=== PATIENT | female | born 1985 | race Caucasian/White ===

== ENCOUNTER → 2019-12-05 09:59 | Outpatient (CLI) | payer OTHER, SELFPAY ==
[2019-12-05 16:25] LABS: Progesterone, Total 6.98 ng/mL
== END ==
PROVIDERS: Family Provider Acupuncturist; PCP Family Medicine; Referring Provider Midwife; Visit Provider Midwife
DX: Z34.91 Encounter for supervision of normal pregnancy, unspecified, first trimester (principal)
CPT/HCPCS: 36415; 84144

== ENCOUNTER → 2019-12-06 10:21 | Outpatient (CLI) | payer OTHER, SELFPAY ==
[2019-12-06 11:55] LABS: HCG Quantitative /Beta subunit 616.99 mIU/mL
== END ==
PROVIDERS: Family Provider Acupuncturist; PCP Family Medicine; Referring Provider Midwife; Visit Provider Midwife
DX: Z34.91 Encounter for supervision of normal pregnancy, unspecified, first trimester (principal)
CPT/HCPCS: 36415; 84702

== ENCOUNTER → 2019-12-07 12:47 | Outpatient (CLI) | payer OTHER, SELFPAY ==
[2019-12-07 14:00] LABS: HCG Quantitative /Beta subunit 979.89 mIU/mL
== END ==
PROVIDERS: Family Provider Acupuncturist; PCP Family Medicine; Referring Provider Midwife; Visit Provider Midwife
DX: Z34.91 Encounter for supervision of normal pregnancy, unspecified, first trimester (principal)
CPT/HCPCS: 36415; 84702

== ENCOUNTER → 2020-04-04 14:23 | Outpatient (CLI) | payer OTHER, MEDICAID, SELFPAY ==
--- NOTE | 2020-04-04 14:25 | DI.US.S_ITS ---
PROCEDURE: US OB >= 14 WEEKS FETUS INDICATIONS: 20 WEEK ANATOMICAL SURVEY OUTSIDE/PRIOR DATING DATA: Last menstrual period (LMP): 11/07/19. LMP-based estimated date of delivery (VIRGEN): 08/13/20. First dating scan (date and location): 04/04/20. Estimated date of delivery (VIRGEN) from first dating scan: 08/10/20. TECHNIQUE: Real-time scanning was performed of the fetus, with image documentation and biometric measurements. Endovaginal scanning: No COMPARISON: None. FINDINGS: General: A single living intrauterine gestation is present. Presentation: Vertex. Placenta: Placental position is posterior, without previa. Amniotic fluid index: 1.6 cm, normal range is 5-24 cm. heart rate: 145 beats per minute. Maternal cervical canal: 3.8 cm long. Normal lower limit is 2.5 cm. biometrics: Biparietal diameter: 22 weeks 1 days Head circumference: 22 weeks 1 day Abdominal circumference: 21 weeks 3 days Femur length: 21 weeks 2 days Estimated gestational age from initial scan: 21 weeks 5 days Composite gestational age from present scan: 21 weeks 5 days Estimated weight and percentile: 428 g; 56 percentile Measurement variability for biometric dating: +/- 7 days from 14 weeks to 15 weeks 6 days gestation, +/- 10 days from 16 weeks to 21 weeks 6 days gestation, +/- 2 weeks from 22 weeks to 27 weeks 6 days gestation, +/- 3 weeks for 28 weeks gestation or later. weight reference: 4500 g or EFW >90/95% is considered macrosomia or large for gestational age. EFW <10% is small for gestational age. EFW 5% or less is considered intra-uterine growth restriction. Anatomic survey: Neuro: Ventricles are non-dilated at less than 10 mm. Cisterna magna is normal at 3-11 mm. Cerebellum is normal in size and morphology. Nuchal skin fold: Normal at less than 6 mm between 14-21 weeks gestational age. Face: Nose and lips. Facial profile not well-seen. Spine: No evidence for spina bifida. Heart: 4-chambered heart is present, with normal ventricular outflow tracts. Diaphragm: Diaphragm is intact. Stomach: Left-sided stomach is present. Kidneys: No hydronephrosis. Normal is less than 5 mm in 2nd trimester, less than 7 mm in 3rd trimester. Cord: 3-vessel cord has orthotopic insertion. Bladder: Normal in size. Extremities: All 4 extremities identified; however the ankle and feet suboptimally visualized. IMPRESSION: 1. 21 week 5 day ruggiero IUP corresponding to ultrasound VIRGEN of 08/10/20. 2. Facial profile and feet not well-visualized; otherwise normal anatomy. Followup recommended. Dictated by: Arden Dahl [facility] Interpreted: Isamar Dudley MD on 04/04/2020 at 16:04 Approved by: Isamar Dudley MD, PhD on 04/04/2020 at 16:32
[2020-04-04 16:59] LABS: Free T3, Triiodothyronine Free 2.41 pg/mL (2.77-5.27); Free T4, Direct Thyroxine 0.74 ng/dL (0.78-2.19)
[2020-04-04 17:13] LABS: Thyroid Stimulating Hormone 1.75 uIU/mL (0.47-4.68)
== END ==
PROVIDERS: Family Provider Acupuncturist; PCP Family Medicine; Referring Provider Midwife; Visit Provider Midwife
DX: Z36.89 Encounter for other specified antenatal screening (principal); Z3A.21 21 weeks gestation of pregnancy
CPT/HCPCS: 36415; 76811; 84144; 84439; 84443; 84481

== ENCOUNTER 2020-08-31 11:58 | Emergency (ER) | payer OTHER, MEDICAID, SELFPAY ==
[2020-08-31] VITALS (11 sets, daily range): BP systolic 127–159; BP diastolic 74–92; PULSE 82–95; RESP 15–16; TEMP 36.8; O2SAT 96–99; BMI 36.6
--- NOTE | 2020-08-31 12:42 | ED_ITS ---
HPI - <TiffanyMICHAEL Pereyra - Last Filed: 08/31/20 16:36> General Chief complaint: Hypertension Stated complaint: High Blood Pressure Post Time Seen by Provider: 08/31/20 12:02 History of Present Illness HPI Narrative: 35yo female who is recently 5 days , presents emergency department for high blood pressure. Patient states after her child was delivered she developed high blood pressure, she is unsure of the exact number but states it was most likely what it is right now (150s/80s). Patient states when she was in the hospital she was put on a labetalol drip and sent home with labetalol pills 100 mg b.i.d.. She had been taking them for the 1st few days but then was concerned that her diastolic blood pressure was low, she c onsult sudden nurse who stated that she should stop the medication for few doses. She continued to check her blood pressure and noticed that it was elevated again, she started taking her medication. She has had 3 doses in the last 48 hours. Last dose was this morning. She states she woke up this morning and noticed her blood pressure was high sits ever been, she states the diastolic blood pressure was very elevated, she was told to come to the ER for any evaluation by her insurance sales specialist. She denies any symptoms at any point with discontinuing or continuing medication, no symptoms this morning. She denies any double vision, blurred vision, headaches, dizziness, nausea, vomiting, diarrhea, abnormal bleeding, muscle cramping, or any other concerns. She states is doing well, she is currently breast-feeding. Denies any history of preeclampsia prior to . Related Data Home Medications Medication Instructions Recorded Confirmed Vitamins (PRENAVITE) 1 tab PO QDAY #0 10/14/16 Review of Systems <TiffanyMICHAEL Pereyra - Last Filed: 08/31/20 16:36> Review of Systems Narrative: REVIEW OF SYSTEMS: GENERAL: Denies fever. HENT: No head trauma. No headaches. EYES: No loss of vision, double vision, eye pain, or irritation. CARDIOVASCULAR: No chest pain. Reports high blood pressure, see HPI. RESPIRATORY: No shortness of breath or cough. GASTROINTESTINAL: Denies abdominal pain. GENITOURINARY: No abnormal or worsening vaginal bleeding. MUSCULOSKELETAL: No pain, weakness, or trauma. INTEGUMENTARY: No rash, lesions, or pruritus. NEURO: No headaches. PMFSH - <MICHAEL Park - Last Filed: 08/31/20 16:36> Past Medical History Medical history: Reports non-contributory Surgical history: Reports non-contributory Exam <MICHAEL Park - Last Filed: 08/31/20 16:36> Initial Vital Signs Initial Vital Signs: Vital Signs Temperature 98.2 F 08/31/20 12:30 Pulse Rate 95 H 08/31/20 12:30 Respiratory Rate 15 08/31/20 12:30 Blood Pressure 159/88 H 08/31/20 12:30 Pulse Oximetry 98 08/31/20 12:30 PHYSICAL EXAMINATION: GENERAL: Well groomed, alert, and cooperative. Answers questions promptly and appropriately. Vital signs noted. HENT: Normocephalic. Ear canals patent. Oral mucosa is pink and moist. EYES: PERRLA, EOMIs, conjunctiva pink, sclera white, no periorbital swelling. NECK: Full ROM. CARDIOVASCULAR: S1 and S2 sounds normal. Regular rate and rhythm, no murmurs, clicks, or bruits. RESPIRATORY: Normal respiratory rate, trachea midline, airway patent. No stridor, nasal flaring or accessory muscle use. Lungs are clear in all lu without wheeze, rhonchi, or crackles. MUSCULOSKELETAL: Normal gait and coordination. Equal tone and mass bilaterally. Equal strength bilaterally to upper and lower extremities. No spinal tenderness. No clonus. EXTREMITIES: CMS intact. Moves all extremities. SKIN: Warm, dry, soft, appropriate color for ethnicity. No lesions, rashes, or wounds to visualized areas. NEURO: Alert and Oriented X 3. GCS: 15. Good coordination. No ataxia, or sensory deficits, or cognitive issues. No clonus. Cranial Nerves: II: Visual lu grossly intact. III & IV & : EOMIs V: Able to open and close jaw. VII: Facial movements symetrical. Able to close eyelids tightly. VIII: Hearing grossly intact, adequate balance. X: Uvula pronation intact. XI: Patient is able to shrug shoulders. XII: Patient is able to stick out tongue and move it side to side. PSYCH: Appropriate affect and mood. <Lucio Britt DO - Last Filed: 08/31/20 16:56> Initial Vital Signs Initial Vital Signs: Vital Signs Temperature 98.2 F 08/31/20 12:30 Pulse Rate 95 H 08/31/20 12:30 Respiratory Rate 15 08/31/20 12:30 Blood Pressure 159/88 H 08/31/20 12:30 Pulse Oximetry 98 08/31/20 12:30 Course <Tiffany Hampton [employer] - Last Filed: 08/31/20 16:36> Course Course Narrative: 1345: Post labetalol, blood pressure is now 132/82, patient updated on plan of care, will contact insurance sales specialist. 1400: I spoke with Senior Cobol Developer, Patsy, from [facility], discussed patient's history, current medication, ER visit, and lab results. She suggested continuing on labetalol 100 mg b.i.d. consistently. She stated she will have the nurse call her tomorrow morning to schedule a blood pressure check. 1410: Patient was updated on plan of care, she states she has a in-home mid with visit on Tuesday, she was encouraged to return to the ED any new or worsening symptoms. Additionally, patient checked her blood pressure machine against are blood pressure equipment and stated that it was completely inaccurate, hers states BP is much higher than we are measuring at this time. BP [id number] at this time. Orders Ordered: ED Orders 08/31/20 12:55 Urine Microscopic Stat 08/31/20 12:58 Creatinine Urine Random Stat 08/31/20 13:06 Complete Blood Count AUTO DIFF Stat Comprehensive Metabolic Panel Stat Lactate Dehydrogenase Stat Discontinued Medications Labetalol HCl (Trandate) 5 mg IV NOW ONE Stop: 08/31/20 12:47 Last Admin: 08/31/20 13:06 Dose: 5 mg Documented by: CELIA Consultations Consultation #1: Patient staffed with Dr. britt discussed test, test results, and plan of care. Vital Signs Vital signs: Vital Signs - 8 hr 08/31/20 12:30 08/31/20 12:46 08/31/20 13:00 Temperature 98.2 F Pulse Rate 95 H 92 H 87 Respiratory Rate 15 Blood Pressure 159/88 H 142/74 H 146/92 H Pulse Oximetry 98 98 97 08/31/20 13:06 08/31/20 13:21 08/31/20 13:30 Temperature Pulse Rate 90 86 82 Respiratory Rate Blood Pressure 146/92 H 134/81 139/86 Pulse Oximetry 97 97 08/31/20 13:40 08/31/20 13:49 08/31/20 13:50 Temperature Pulse Rate 85 94 H 89 Respiratory Rate Blood Pressure 128/77 128/77 127/78 Pulse Oximetry 96 98 08/31/20 14:00 08/31/20 14:20 Temperature Pulse Rate 83 82 Respiratory Rate 16 Blood Pressure 130/82 141/76 H Pulse Oximetry 98 99 <Lucio Britt DO - Last Filed: 08/31/20 16:56> Orders Ordered: ED Orders 08/31/20 12:55 Urine Microscopic Stat 08/31/20 12:58 Creatinine Urine Random Stat 08/31/20 13:06 Complete Blood Count AUTO DIFF Stat Comprehensive Metabolic Panel Stat Lactate Dehydrogenase Stat Discontinued Medications Labetalol HCl (Trandate) 5 mg IV NOW ONE Stop: 08/31/20 12:47 Last Admin: 08/31/20 13:06 Dose: 5 mg Documented by: CELIA Vital Signs Vital signs: Vital Signs - 8 hr 08/31/20 12:30 08/31/20 12:46 08/31/20 13:00 Temperature 98.2 F Pulse Rate 95 H 92 H 87 Respiratory Rate 15 Blood Pressure 159/88 H 142/74 H 146/92 H Pulse Oximetry 98 98 97 08/31/20 13:06 08/31/20 13:21 08/31/20 13:30 Temperature Pulse Rate 90 86 82 Respiratory Rate Blood Pressure 146/92 H 134/81 139/86 Pulse Oximetry 97 97 08/31/20 13:40 08/31/20 13:49 08/31/20 13:50 Temperature Pulse Rate 85 94 H 89 Respiratory Rate Blood Pressure 128/77 128/77 127/78 Pulse Oximetry 96 98 08/31/20 14:00 08/31/20 14:20 Temperature Pulse Rate 83 82 Respiratory Rate 16 Blood Pressure 130/82 141/76 H Pulse Oximetry 98 99 MDM - OB/Uterine Contractions <MICHAEL Park - Last Filed: 08/31/20 16:36> Medical Records Attestation: I reviewed the patient's medical records. Lab Data Attestation: I reviewed the patient's lab results. Result diagrams: 08/31/20 13:06 08/31/20 13:06 Labs: Lab Results 08/31/20 08/31/20 08/31/20 Range/Units 12:55 12:58 13:06 WBC 14.4 H (4.5-11.0) X10^3/uL RBC 4.57 (4.0-5.2) X10^6/uL Hgb 13.5 (12.0-16.0) g/dL Hct 40.0 (36-46) % MCV 87.6 (80-100) fL MCH 29.6 (26-34) PG MCHC 33.8 (30-36) % RDW 14.9 H (11.6-14.8) % Plt Count 275 (150-400) X10^3/uL Neut % (Auto) 80.1 H (50-75) % Lymph % (Auto) 12.8 L (25-40) % [place] % (Auto) 5.2 (3-14) % Eos % (Auto) 1.3 L (2-4) % Baso % (Auto) 0.6 (0-2) % Neut # (Auto) 27350 H (7801-2587) /uL Lymph # (Auto) 1800 (4578-4024) /uL [place] # (Auto) 700 (0-900) /uL Eos # (Auto) 200 (0-450) /uL Baso # (Auto) 100 (0-100) /uL Sodium (137-145) mmol/L Potassium (3.4-5.1) mmol/L Chloride (98-107) mmol/L Carbon Dioxide (22-32) mmol/L BUN (7-17) mg/dL Creatinine (0.52-1.04) mg/dL Estimated GFR (>60) mL/min BUN/Creatinine Ratio (6-22) Glucose (70-100) mg/dL Calcium (8.4-10.2) mg/dL Total Bilirubin (0.2-1.3) mg/dL AST (14-36) IU/L ALT (<35) IU/L Alkaline Phosphatase (38-126) U/L Lactate Dehydrogenase (313-618) U/L Total Protein (6.3-8.2) g/dL Albumin (3.5-5.0) g/dL Globulin (1.7-4.1) g/dL Albumin/Globulin Ratio (1.0-2.8) Urine RBC 0-1/hpf (0-5/HPF) Urine WBC 1-5/hpf (0-5/HPF) Ur Squamous Epith Cells 0-1 /hpf (0-5/HPF) Urine Bacteria None seen (None) Ur Culture Indicated? Cult not indicated Urine Creatinine 24.2 mg/dL 08/31/20 08/31/20 Range/Units 13:06 13:06 WBC (4.5-11.0) X10^3/uL RBC (4.0-5.2) X10^6/uL Hgb (12.0-16.0) g/dL Hct (36-46) % MCV (80-100) fL MCH (26-34) PG MCHC (30-36) % RDW (11.6-14.8) % Plt Count (150-400) X10^3/uL Neut % (Auto) (50-75) % Lymph % (Auto) (25-40) % [place] % (Auto) (3-14) % Eos % (Auto) (2-4) % Baso % (Auto) (0-2) % Neut # (Auto) (6908-1757) /uL Lymph # (Auto) (4330-7826) /uL [place] # (Auto) (0-900) /uL Eos # (Auto) (0-450) /uL Baso # (Auto) (0-100) /uL Sodium 135 L (137-145) mmol/L Potassium 4.4 (3.4-5.1) mmol/L Chloride 104 (98-107) mmol/L Carbon Dioxide 26 (22-32) mmol/L BUN 11 (7-17) mg/dL Creatinine 0.67 (0.52-1.04) mg/dL Estimated GFR > 60.0 (>60) mL/min BUN/Creatinine Ratio 16.4 (6-22) Glucose 88 (70-100) mg/dL Calcium 9.5 (8.4-10.2) mg/dL Total Bilirubin 0.5 (0.2-1.3) mg/dL AST 27 (14-36) IU/L ALT 19 (<35) IU/L Alkaline Phosphatase 139 H (38-126) U/L Lactate Dehydrogenase 451 (313-618) U/L Total Protein 7.5 (6.3-8.2) g/dL Albumin 4.1 (3.5-5.0) g/dL Globulin 3.4 (1.7-4.1) g/dL Albumin/Globulin Ratio 1.2 (1.0-2.8) Urine RBC (0-5/HPF) Urine WBC (0-5/HPF) Ur Squamous Epith Cells (0-5/HPF) Urine Bacteria (None) Ur Culture Indicated? Urine Creatinine mg/dL Urine Dip Bedside Urine Glucose Negative Bedside Urine Bilirubin - Negative Bedside Urine Ketone - Negative Urine Specific [place] 1.015 Bedside Urine Occult Blood + Bedside Urine pH 6.0 Bedside Urine Protein - Negative Bedside Urine Urobilinogen - Negative Bedside Urine Nitrite - Negative Bedside Urine Leukocytes - Negative Esterase MDM Narrative Medical decision making narrative: 35-year-old female who is 5 days , presents emergency department for hypertension. She initially developed hypertension post delivery, was started on a labetalol IV and then discharged with labetalol 100 mg b.i.d. I suspect patient has simple elevated high blood pressure. Less concern for HELLP syndrome or preeclampsia given negative urine protein, negative urine creatinine, AST and ALT within normal limits, normal platelet count, and lack of any concerning symptoms such as clonus, headaches, or vision problems. Less concern for signs of infection, patient is hemodynamically stable, no reports of increased bleeding, no fevers, and patient is not tachycardic. I spoke with patient's Senior Cobol Developer, Patsy from [employer] who suggested she continues with labetalol 100 mg b.i.d. especially signs there was an break in treatment as she initially thought that her blood pressure was low. Patient's blood pressure significantly improved in the emergency department with a very small dose of labetalol IV. Additionally I think that patient's device that she was using to measure her blood pressure is inaccurate, this may have contributed to her reading of elevated blood pressures. Infant is healthy and eating well. Return precautions given for new or worsening symptoms. Patient agreed to plan of care and verbalized understanding. <Lucio Britt, DO - Last Filed: 08/31/20 16:56> Lab Data Labs: Lab Results 08/31/20 08/31/20 08/31/20 Range/Units 12:55 12:58 13:06 WBC 14.4 H (4.5-11.0) X10^3/uL RBC 4.57 (4.0-5.2) X10^6/uL Hgb 13.5 (12.0-16.0) g/dL Hct 40.0 (36-46) % MCV 87.6 (80-100) fL MCH 29.6 (26-34) PG MCHC 33.8 (30-36) % RDW 14.9 H (11.6-14.8) % Plt Count 275 (150-400) X10^3/uL Neut % (Auto) 80.1 H (50-75) % Lymph % (Auto) 12.8 L (25-40) % [place] % (Auto) 5.2 (3-14) % Eos % (Auto) 1.3 L (2-4) % Baso % (Auto) 0.6 (0-2) % Neut # (Auto) 36255 H (4289-2098) /uL Lymph # (Auto) 1800 (6101-9760) /uL [place] # (Auto) 700 (0-900) /uL Eos # (Auto) 200 (0-450) /uL Baso # (Auto) 100 (0-100) /uL Sodium (137-145) mmol/L Potassium (3.4-5.1) mmol/L Chloride (98-107) mmol/L Carbon Dioxide (22-32) mmol/L BUN (7-17) mg/dL Creatinine (0.52-1.04) mg/dL Estimated GFR (>60) mL/min BUN/Creatinine Ratio (6-22) Glucose (70-100) mg/dL Calcium (8.4-10.2) mg/dL Total Bilirubin (0.2-1.3) mg/dL AST (14-36) IU/L ALT (<35) IU/L Alkaline Phosphatase (38-126) U/L Lactate Dehydrogenase (313-618) U/L Total Protein (6.3-8.2) g/dL Albumin (3.5-5.0) g/dL Globulin (1.7-4.1) g/dL Albumin/Globulin Ratio (1.0-2.8) Urine RBC 0-1/hpf (0-5/HPF) Urine WBC 1-5/hpf (0-5/HPF) Ur Squamous Epith Cells 0-1 /hpf (0-5/HPF) Urine Bacteria None seen (None) Ur Culture Indicated? Cult not indicated Urine Creatinine 24.2 mg/dL 08/31/20 08/31/20 Range/Units 13:06 13:06 WBC (4.5-11.0) X10^3/uL RBC (4.0-5.2) X10^6/uL Hgb (12.0-16.0) g/dL Hct (36-46) % MCV (80-100) fL MCH (26-34) PG MCHC (30-36) % RDW (11.6-14.8) % Plt Count (150-400) X10^3/uL Neut % (Auto) (50-75) % Lymph % (Auto) (25-40) % [place] % (Auto) (3-14) % Eos % (Auto) (2-4) % Baso % (Auto) (0-2) % Neut # (Auto) (7247-4649) /uL Lymph # (Auto) (6200-9588) /uL [place] # (Auto) (0-900) /uL Eos # (Auto) (0-450) /uL Baso # (Auto) (0-100) /uL Sodium 135 L (137-145) mmol/L Potassium 4.4 (3.4-5.1) mmol/L Chloride 104 (98-107) mmol/L Carbon Dioxide 26 (22-32) mmol/L BUN 11 (7-17) mg/dL Creatinine 0.67 (0.52-1.04) mg/dL Estimated GFR > 60.0 (>60) mL/min BUN/Creatinine Ratio 16.4 (6-22) Glucose 88 (70-100) mg/dL Calcium 9.5 (8.4-10.2) mg/dL Total Bilirubin 0.5 (0.2-1.3) mg/dL AST 27 (14-36) IU/L ALT 19 (<35) IU/L Alkaline Phosphatase 139 H (38-126) U/L Lactate Dehydrogenase 451 (313-618) U/L Total Protein 7.5 (6.3-8.2) g/dL Albumin 4.1 (3.5-5.0) g/dL Globulin 3.4 (1.7-4.1) g/dL Albumin/Globulin Ratio 1.2 (1.0-2.8) Urine RBC (0-5/HPF) Urine WBC (0-5/HPF) Ur Squamous Epith Cells (0-5/HPF) Urine Bacteria (None) Ur Culture Indicated? Urine Creatinine mg/dL Urine Dip Bedside Urine Glucose Negative Bedside Urine Bilirubin - Negative Bedside Urine Ketone - Negative Urine Specific [place] 1.015 Bedside Urine Occult Blood + Bedside Urine pH 6.0 Bedside Urine Protein - Negative Bedside Urine Urobilinogen - Negative Bedside Urine Nitrite - Negative Bedside Urine Leukocytes - Negative Esterase Discharge Plan Departure Patient Disposition: Home Clinical Impression: BP (high blood pressure) Qualifiers: Hypertension type: unspecified Qualified Code(s): I10 - Essential (primary) hypertension Discharge Date/Time: 08/31/20 14:21 Instructions: DI for High Blood Pressure Activity Restrictions/Additional Instructions: Thank you for entrusting me with your care today. As discussed, your laboratory work an urinalysis are non-remarkable today. Please continue with your labetalol 100mg morning and night as directed. Is important to monitor your symptoms, please contact the midwifery service or return to the ER if you developed any dizziness, shortness of breath, headaches, or vision changes as these are signs that your blood pressure is changing. I spoke with your insurance sales specialist, Patsy, from [employer], she will have the nurse call you in the morning discussed clinic blood pressure checks. Return emergency department for any new or worsening symptoms. Prescriptions: No Action Vitamins (PRENAVITE) 1 tab PO QDAY Qty: 0 RF: 0 Referrals: Yana Gross MD [Primary Care Provider] - <Lucio Britt DO - Last Filed: 08/31/20 16:56> [facility] Dr Britt Co-Sign Statement: I was available for consultation during this patient's emergency department visit. This chart is signed by myself for administrative purposes only. I did not have direct contact with this patient during this visit. They were seen independently by the APC.
[2020-08-31] MEDS: LABETALOL 20 MG/4 ML SYRINGE 5 MG IV (13:06)
[2020-08-31 13:10] LABS: Bacteria Urine None Seen
[2020-08-31 13:16] LABS: Add Manual Diff / Slide Review NO; Basophils Absolute Auto 100 /uL (0-100); Basophils Percent Auto 0.6 % (0-2); Eosinophils Absolute Auto 200 /uL (0-450); Eosinophils Percent Auto 1.3 % (2-4); Hemoglobin 13.5 g/dL (12.0-16.0); Lymphocytes Absolute Auto 1800 /uL (1100-4500); Lymphocytes Percent Auto 12.8 % (25-40); Mean Corpuscular HGB Conc 33.8 % (30-36); Mean Corpuscular Hemoglobin 29.6 PG (26-34); Mean Corpuscular Volume 87.6 fL (80-100); Monocytes Absolute Auto 700 /uL (0-900); Monocytes Percent Auto 5.2 % (3-14); Neutrophils Absolute Auto 11600 /uL (1500-7000); Neutrophils Percent Auto 80.1 % (50-75); Platelet Count 275 X10^3/uL (150-400); Red Blood Cell Count 4.57 X10^6/uL (4.0-5.2); Red Cell Distribution Width 14.9 % (11.6-14.8); White Blood Cell Count 14.4 X10^3/uL (4.5-11.0)
[2020-08-31 13:23] LABS: Lactate Dehydrogenase 451 U/L (313-618)
[2020-08-31 13:24] LABS: Alanine Aminotransferase 19 IU/L (<35); Albumin 4.1 g/dL (3.5-5.0); Albumin Globulin Ratio 1.2 (1.0-2.8); Alkaline Phosphatase 139 U/L (38-126); Aspartate Aminotransferase 27 IU/L (14-36); BUN Creatinine Ratio 16.4 (6-22); Bilirubin Total 0.5 mg/dL (0.2-1.3); Blood Urea Nitrogen 11 mg/dL (7-17); Calcium 9.5 mg/dL (8.4-10.2); Carbon Dioxide 26 mmol/L (22-32); Chloride 104 mmol/L (98-107); Estimated Glomerular Filt Rate > 60.0 mL/min (>60); Globulin 3.4 g/dL (1.7-4.1); Glucose 88 mg/dL (70-100); HEMOLYSIS < 15 (0-50); Potassium 4.4 mmol/L (3.4-5.1); Sodium 135 mmol/L (137-145); Total Protein 7.5 g/dL (6.3-8.2)
[2020-08-31 13:25] LABS: Creatinine Urine Random 24.2 mg/dL
[2020-08-31 13:28] LABS: Culture Indicated Urine Cult Not Indicated; RBC Urine 0-1/HPF (0-5/HPF); Squamous Epithelial Cell Urine 0-1 /HPF (0-5/HPF); WBC Urine 1-5/HPF (0-5/HPF)
== END 2020-08-31 14:21 | disposition home or self-care (01) ==
PROVIDERS: Emergency Provider Nurse Practitioner; Family Provider Acupuncturist; PCP Family Medicine
DX: O16.5 Unspecified maternal hypertension, complicating the puerperium (principal)
CPT/HCPCS: 36415; 80053; 81003; 81015; 82570; 83615; 85025; 96374; 99284

== ENCOUNTER → 2022-07-14 12:06 | Outpatient (CLI) | payer OTHER, MEDICAID, SELFPAY ==
[2022-07-14 13:01] LABS: Add Manual Diff / Slide Review NO; Basophils Absolute Auto 100 /uL (0-100); Basophils Percent Auto 0.6 % (0-2); Eosinophils Absolute Auto 200 /uL (0-450); Hematocrit 40.4 % (36-46); Hemoglobin 14.1 g/dL (12.0-16.0); Lymphocytes Absolute Auto 2600 /uL (1100-4500); Lymphocytes Percent Auto 30.4 % (25-40); Mean Corpuscular HGB Conc 34.9 % (30-36); Mean Corpuscular Hemoglobin 29.3 PG (26-34); Monocytes Absolute Auto 500 /uL (0-900); Monocytes Percent Auto 6.2 % (3-14); Neutrophils Absolute Auto 5300 /uL (1500-7000); Neutrophils Percent Auto 60.8 % (50-75); Platelet Count 322 X10^3/uL (150-400); Red Blood Cell Count 4.81 X10^6/uL (4.0-5.2); Red Cell Distribution Width 13.2 % (11.6-14.8); White Blood Cell Count 8.7 X10^3/uL (4.5-11.0)
[2022-07-14 13:15] LABS: Alanine Aminotransferase 15 IU/L (<35); Albumin 4.7 g/dL (3.5-5.0); Albumin Globulin Ratio 1.3 (1.0-2.8); Alkaline Phosphatase 77 U/L (38-126); Aspartate Aminotransferase 26 IU/L (14-36); BUN Creatinine Ratio 16.5 (6-22); Bilirubin Total 0.8 mg/dL (0.2-1.3); Blood Urea Nitrogen 14 mg/dL (7-17); Calcium 9.1 mg/dL (8.4-10.2); Carbon Dioxide 23 mmol/L (22-32); Chloride 103 mmol/L (98-107); Estimated Glomerular Filt Rate > 60 mL/min (>60); Globulin 3.6 g/dL (1.7-4.1); Glucose 81 mg/dL (70-100); HEMOLYSIS 16 (0-50); Potassium 3.8 mmol/L (3.4-5.1); Sodium 138 mmol/L (137-145); Total Protein 8.3 g/dL (6.3-8.2)
[2022-07-14 13:48] LABS: Thyroid Stimulating Hormone 5.81 uIU/mL (0.47-4.68)
[2022-07-14 15:36] LABS: Creatinine Urine Random 118.2 mg/dL
[2022-07-14 15:40] LABS: Microalbumi Creatinin Ratio Ur 10.9 ug/mg CR (<30); Microalbumin Urine Random 1.3 mg/dL (0-1.6)
== END ==
PROVIDERS: Family Provider Acupuncturist; PCP Family Medicine; Referring Provider Family Medicine; Visit Provider Family Medicine
DX: I10 Essential (primary) hypertension (principal)
CPT/HCPCS: 36415; 80053; 82043; 82570; 84443; 85025

== ENCOUNTER → 2022-07-27 16:25 | Outpatient (CLI) | payer OTHER, MEDICAID, SELFPAY | PROVIDERS: Family Provider Acupuncturist; PCP Family Medicine; Visit Provider Physician Assistant | DX: B35.1 Tinea unguium (principal) | CPT/HCPCS: 87102; 87107 ==

== ENCOUNTER → 2022-10-04 10:53 | Outpatient (CLI) | payer OTHER, MEDICAID, SELFPAY ==
[2022-10-04 12:49] LABS: TSH w/ Reflex to FT4 4.27 uIU/mL (0.47-4.68)
== END ==
PROVIDERS: Family Provider Acupuncturist; PCP Family Medicine; Referring Provider Physician Assistant; Visit Provider Physician Assistant
DX: R79.89 Other specified abnormal findings of blood chemistry (principal)
CPT/HCPCS: 36415; 84443

== ENCOUNTER → 2023-07-27 09:02 | Outpatient (CLI) | payer OTHER, MEDICAID, SELFPAY ==
[2023-07-27 10:58] LABS: TSH w/ Reflex to FT4 3.18 uIU/mL (0.47-4.68)
== END ==
PROVIDERS: Family Provider Acupuncturist; PCP Family Medicine; Referring Provider Physician Assistant; Visit Provider Physician Assistant
DX: R79.89 Other specified abnormal findings of blood chemistry (principal); I10 Essential (primary) hypertension
CPT/HCPCS: 36415; 84443

== ENCOUNTER → 2023-08-12 07:12 | Outpatient (CLI) | payer OTHER, MEDICAID, SELFPAY ==
[2023-08-12 07:59] LABS: Add Manual Diff / Slide Review NO; Basophils Absolute Auto 100 /uL (0-100); Basophils Percent Auto 0.7 % (0-2); Eosinophils Absolute Auto 200 /uL (0-450); Eosinophils Percent Auto 2.3 % (2-4); Lymphocytes Absolute Auto 2200 /uL (1100-4500); Lymphocytes Percent Auto 27.9 % (25-40); Mean Corpuscular HGB Conc 34.1 % (30-36); Mean Corpuscular Hemoglobin 29.2 PG (26-34); Mean Corpuscular Volume 85.6 fL (80-100); Monocytes Absolute Auto 600 /uL (0-900); Monocytes Percent Auto 7.9 % (3-14); Neutrophils Absolute Auto 4800 /uL (1500-7000); Neutrophils Percent Auto 61.2 % (50-75); Platelet Count 288 X10^3/uL (150-400); Red Blood Cell Count 4.79 X10^6/uL (4.0-5.2); Red Cell Distribution Width 12.8 % (11.6-14.8); White Blood Cell Count 7.8 X10^3/uL (4.5-11.0)
[2023-08-12 08:28] LABS: Alanine Aminotransferase 15 IU/L (<35); Albumin 4.4 g/dL (3.5-5.0); Albumin Globulin Ratio 1.3 (1.0-2.8); Alkaline Phosphatase 61 U/L (38-126); Aspartate Aminotransferase 29 IU/L (14-36); BUN Creatinine Ratio 18.1 (6-22); Bilirubin Total 1.1 mg/dL (0.2-1.3); Blood Urea Nitrogen 15 mg/dL (7-17); Calcium 9.2 mg/dL (8.4-10.2); Carbon Dioxide 27 mmol/L (22-32); Chloride 102 mmol/L (98-107); Cholesterol 207 mg/dL (140-199); Estimated Glomerular Filt Rate > 60 mL/min (>60); Globulin 3.4 g/dL (1.7-4.1); Glucose 90 mg/dL (70-100); HDL Cholesterol 37 mg/dL (40-60); HEMOLYSIS 16 (0-50); LDL Cholesterol Calculated 144 mg/dL (<100); Potassium 4.2 mmol/L (3.4-5.1); Sodium 137 mmol/L (137-145); Total Protein 7.8 g/dL (6.3-8.2); Triglycerides 128 mg/dL (35-150)
--- NOTE | 2023-08-12 15:56 | DI.US.S_ITS ---
PROCEDURE: US EXTREMITY NONVASC LOWER RT INDICATIONS: Soft tissue mass R medial upper thigh - lipoma(?) TECHNIQUE: Real-time scanning was performed of the right superior thigh, with image documentation. COMPARISON: None. FINDINGS: An ill-defined 1.0 x 0.8 x 1.4 cm echogenic mass is present within the subcutaneous fat in the area palpated by the patient. There is no increased vascularity or soft tissue component. IMPRESSION: Findings most consistent with a lipoma. Of note, lipoma cannot be differentiated by ultrasound alone from the very rare liposarcoma. In the setting of rapid interval growth, further characterization with MRI is were warranted. Dictated by: Leny Teran M.D. on 08/12/2023 at 17:09 Approved by: Leny Teran M.D. on 08/12/2023 at 17:09
== END ==
PROVIDERS: Family Provider Acupuncturist; PCP Family Medicine; Referring Provider Physician Assistant; Visit Provider Physician Assistant
DX: M79.89 Other specified soft tissue disorders (principal); R07.9 Chest pain, unspecified; I10 Essential (primary) hypertension; Z13.220 Encounter for screening for lipoid disorders; Z13.6 Encounter for screening for cardiovascular disorders; Z80.49 Family history of malignant neoplasm of other genital organs; Z82.49 Family history of ischemic heart disease and other diseases of the circulatory system
CPT/HCPCS: 36415; 76882; 80053; 80061; 85025

== ENCOUNTER → 2024-12-05 10:57 | Outpatient (CLI) | payer OTHER, SELFPAY ==
--- NOTE | 2024-12-05 10:58 | DI.US.S_ITS ---
PROCEDURE: US OB <= 14 WEEKS FETUS INDICATIONS: VIABILITY OUTSIDE/PRIOR DATING DATA: Last menstrual period (LMP): 10/02/2024 LMP-based estimated date of delivery (VIRGEN): 07/09/2025 TECHNIQUE: Real-time scanning was performed of the fetus and maternal pelvic organs, with image documentation. Endovaginal scanning was also performed to better visualize the fetus and maternal ovaries. COMPARISON: None. FINDINGS: Intrauterine gestational sac is seen with mean sac diameter of 1.1 cm, compatible with an estimated gestational age of 5 weeks 6 days. No definite pole or yolk sac. Maternal organs: Left ovary is not visualized. Right ovary appears normal on transabdominal scanning. IMPRESSION: of uncertain viability. Intrauterine gestational sac is seen without pole. Recommend follow-up ultrasound in 14 days. Approved by: John Ward M.D. on 12/05/2024 at 15:04
== END ==
LOC: US 10:58
PROVIDERS: Family Provider Acupuncturist; PCP Family Medicine; Referring Provider Advanced Practice Midwife; Visit Provider Advanced Practice Midwife
DX: O36.80X0 Pregnancy with inconclusive fetal viability, not applicable or unspecified (principal)
CPT/HCPCS: 76801; 76817

== ENCOUNTER → 2025-08-02 07:08 | Outpatient (CLI) | payer OTHER, SELFPAY ==
[2025-08-02 07:56] LABS: Add Manual Diff / Slide Review NO; Hematocrit 41.9 % (36-46); Hemoglobin 14.3 g/dL (12.0-16.0); Lymphocytes Absolute Auto 2500 /uL (1100-4500); Mean Corpuscular HGB Conc 34.2 % (30-36); Mean Corpuscular Hemoglobin 29.2 PG (26-34); Mean Corpuscular Volume 85.4 fL (80-100); Platelet Count 314 X10^3/uL (150-400)
[2025-08-02 08:07] LABS: Hemoglobin A1C% w Est Avg Glu 5.3 % (4.0-6.0)
[2025-08-02 08:16] LABS: Alanine Aminotransferase 16 IU/L (<35); Albumin 4.5 g/dL (3.5-5.0); Albumin Globulin Ratio 1.5 (1.0-2.8); Alkaline Phosphatase 65 U/L (38-126); Blood Urea Nitrogen 16 mg/dL (7-17); Calcium 9.6 mg/dL (8.4-10.2); Carbon Dioxide 28 mmol/L (22-32); Chloride 103 mmol/L (98-107); Cholesterol 214 mg/dL (140-199); Estimated Glomerular Filt Rate > 60 mL/min (>60); Globulin 3.0 g/dL (1.7-4.1); Glucose 91 mg/dL (70-99); HDL Cholesterol 47 mg/dL (40-60); HEMOLYSIS < 15 (0-50); Potassium 4.7 mmol/L (3.4-5.1); Sodium 137 mmol/L (137-145); Total Protein 7.5 g/dL (6.3-8.2); Triglycerides 193 mg/dL (35-150)
[2025-08-02 08:21] LABS: Microalbumi Creatinin Ratio Ur 9.0 ug/mg CR (<30)
[2025-08-02 08:48] LABS: TSH w/ Reflex to FT4 5.23 uIU/mL (0.47-4.68)
[2025-08-02 15:30] LABS: Free T4, Direct Thyroxine 0.83 ng/dL (0.78-2.19)
== END ==
PROVIDERS: Family Provider Acupuncturist; PCP Family Medicine; Referring Provider Family Medicine; Visit Provider Family Medicine
DX: I10 Essential (primary) hypertension (principal); R79.89 Other specified abnormal findings of blood chemistry; E78.5 Hyperlipidemia, unspecified; Z13.1 Encounter for screening for diabetes mellitus; E66.01 Morbid (severe) obesity due to excess calories
CPT/HCPCS: 36415; 80053; 80061; 82043; 82570; 83036; 84439; 84443; 85025